=== PATIENT | male | born 1940 | race Caucasian/White ===

== ENCOUNTER 2017-11-19 10:52 | Day surgery (SDC) | payer OTHER ==
[2017-11-19] MEDS ORDERED: ACETAMINOPHEN 500 MG TAB PO ONE (11:19)
[2017-11-19] MEDS ORDERED: ceFAZolin 2 GM/SWFI 2 GM/20 ML SYR IVP ONE (11:19)
[2017-11-19] MEDS ORDERED: GABAPENTIN 300 MG CAP PO ONE (11:19)
[2017-11-19] MEDS ORDERED: LR 1,000 ML IV ONE (11:36)
[2017-11-19 11:46] VITALS: BP 177/83
[2017-11-19] MEDS ORDERED: EPINEPHrine 1 MG/ML INJ ONE (11:50)
[2017-11-19] MEDS ORDERED: THROMBIN (BOVINE) 5,000 UNIT VIAL TP ONE (11:50)
[2017-11-19] MEDS ORDERED: BUPIVACAINE 0.25% 30 ML SDV ONE (11:50)
[2017-11-19] MEDS ORDERED: BACITRACIN 50,000 UNITS/10 ML SYR IRR ONE (11:50)
[2017-11-19] MEDS ORDERED: IOPAMIDOL (ISOVUE-M 300) 15 ML VIAL ONE (11:51)
--- NOTE | 2017-11-19 12:35 | PDANEPAE ---
ANE History of Present Illness 77 yo male for kyphoplasty. ANE Past Medical History - Cardiovascular History Hx Hypertension: Yes Hx Arrhythmias: No Hx Chest Pain: No Hx Coronary Artery / Peripheral Vascular Disease: No Hx CHF / Valvular Disease: No Hx Palpitations: No Cardiovascular History Comment: chronic dry cough from JEANNINE-I - Pulmonary History Hx COPD: No Hx Asthma/Reactive Airway Disease: No Hx Recent Upper Respiratory Infection: No Hx Oxygen in Use at Home: Yes Hx Sleep Apnea: No Sleep Apnea Screening Result - Last Documented: Positive Pulmonary History Comment: USES C-PAP WITH 3 L. FOR CALLI. EXPERIENCED COLLAPSED LUNG WITH ONE OF HIS PREV SURGERIES - Neurologic History Hx Cerebrovascular Accident: No Hx Seizures: No Hx Dementia: No Neurologic History Comment: MIGRAINES, pt reports a blood clot in his R eye when he stopped taking his ASA. - Endocrine History Hx Diabetes: No Hypothyroid: Yes Hyperthyroid: No Obesity: no Endocrine History Comment: HYPOTHYROIDISM - Renal History Hx Renal Disorders: No - Liver History Hx Hepatic Disorders: No - Neurological & Psychiatric Hx Hx Neurological and Psychiatric Disorders: No - Cancer History Hx Cancer: No - Congenital Disorder History Hx Congenital Disorders: No - GI History Hx Gastrointestinal Disorders: Yes Gastrointestinal History Comment: CHRONIC DYSPHAGIA. GERD. HIATAL HERNIA. CONSTIPATION. BLOOD CLOT R EYE IN PAST. MACULAR PUCKER R EYE - Other Health History Other Health History: DENTURES UPPER AND LOWER. ARTHRITIS IN MOST JOINTS. MUSCLE ATROPHY R ARM AND SHOULDER. T12 UNSTABLE. BRUISES EASILY - Chronic Pain History Chronic Pain: Yes (T7-T8 PAIN) - Surgical History Prior Surgeries: LUMBAR FUSION 01/2016. CERVICAL ACDF 10/25/15. 2012 fusion of S1. 02/2014 removal of hardware. 2000 neck surgeries x 2. fusion top C123. lower jaw implant. L KNEE SURGERY. TONSILLECTOMY ANE Review of Systems Review of Systems: - Exercise capacity METS (RN): 4 METS - Systems Constitutional: Reports: no symptoms Cardiac: Reports: no symptoms Muscolosketal: Reports: back pain ANE Patient History - Allergies Allergies/Adverse Reactions: codeine Allergy (Verified 11/16/17 12:21) RED FACE,NECK,CHEST & PASSED OUT - Home Medications Home Medications: Levothyroxine [Synthroid 137 mcg (*)] 137 mcg PO DAILY 10/17/15 [Last Taken ] Lisinopril/Hydrochlorothiazide [Lisinopril-Hctz 10-12.5 mg Tab] 1 tab PO DAILY 10/17/15 [Last Taken 11/19/17] Almotriptan Malate [Axert] 12.5 mg PO ONCE PRN 01/11/16 [Last Taken 11/17/17] LORazepam [Ativan (*)] 0.5 mg PO DAILY PRN 01/11/16 [Last Taken 11/17/17] Ranitidine HCl 150 mg PO DAILY PRN 01/11/16 [Last Taken 11/17/17] Aspirin 81mg (*) 11/16/17 [Last Taken 11/17/17] Herbals/Supplements -Info Only 11/16/17 [Last Taken 11/17/17] Omeprazole 11/16/17 [Last Taken 11/17/17] Zyrtec 11/16/17 [Last Taken 11/17/17] - NPO status NPO Since - Liquids (Date): 11/18/17 NPO Since - Liquids (Time): 21:00 NPO Since - Solids (Date): 11/18/17 NPO Since - Solids (Time): 21:00 - Anes Hx Anes Hx: no prior problems - Smoking Hx Smoking Status: Former smoker Marijuana use: Yes - Alcohol Use Alcohol Use: Rarely - Family Anes Hx Family Anes Hx: neg - N/A Family Hx Anesthesia Complications: NEG ANE Labs/Vital Signs - Labs - BMP BUN: 27 Creatinine: 1.4 - Vital Signs Blood Pressure: 177/83 Heart Rate: 63 Respiratory Rate: 18 O2 Sat (%): 95 Height: 173.99 cm Weight: 83.461 kg ANE Physical Exam - Airway Neck exam: spinal fusion Mallampati Score: Class 2 Mouth exam: dentures - Pulmonary Pulmonary: clear to auscultation - Cardiovascular Cardiovascular: irregularly irregular (Will check 12 lead EKG) - ASA Status ASA Status: III ANE Anesthesia Plan Anesthesia Plan: general endotracheal anesthesia
--- NOTE | 2017-11-19 12:46 | CPEKG ---
Heart Rate: 144 RR Interval: 417 QRSD Interval: 84 QT Interval: 300 QTC Interval: 465 QRS Brewster: 42 T Wave Brewster: 235 EKG Severity - ABNORMAL ECG - EKG Impression: ATRIAL FIBRILLATION, V-RATE 111-167 EKG Impression: REPOLARIZATION ABNORMALITY, PROB RATE RELATED Electronically Signed By: Rinku Lam 20-Nov-2017 07:34:37
[2017-11-19] MEDS ORDERED: ASPIRIN 81 MG CHEWABLE TAB PO ONE (13:08)
--- NOTE | 2017-11-19 14:48 | GCON ---
[f rep st] CONSULTATION I was asked to visit a patient who was about to have back surgery today in the presurgical area. The patient was found to have atrial fibrillation with a rapid ventricular response. He has no chest pain. He feels his heart going a little bit fast, but has no other complaints. No findings to sugg est failure acute coronary syndrome. His surgery had been canceled, and they asked if we would just discuss atrial fibrillation with the patient. I visited with the patient and his . I have answered their questions. They have a primary care doctor at [place] that they will discuss a trial fibrillation with. I have given them written instructions to ask him about full anticoagulatio n with warfarin or abciximab-type medications. In the meantime, he is going to resume aspirin 81 mg a day. We discussed the stroke risks. I strongly recommended he get full anticoagulation which is t he way we would treat him, but we are not going to start that as he is not our patient and we do not know him. He will most likely see a survey compiler that his primary care doctor recommends up in [place] because of their proximity, but I have given him our name and phone number, and we are more than happy to se e him at any time in the future if he would like to have his care done by us. He is hemodynamically stable. I have discussed with them the presentation of stroke and made it very clear to his and he that should he develop any neurologic symptoms suggestive of a stroke at al l he needs to call 911 to get to the hospital to be evaluated. He is not symptomatic with this fast heart rate so he is going to take up rate control, etc., and rhy thm control with his own primary care doctor, and they will call him later today. All their questions have been answered. Thank you very much. /[id number]/MODL
== END 2017-11-19 13:37 | disposition home or self-care (01) ==
LOC: FSGY 10:52
PROVIDERS: ATTEND Neurological Surgery
DX: M54.9 Dorsalgia, unspecified (principal); Z53.09 Procedure and treatment not carried out because of other contraindication; I49.01 Ventricular fibrillation
CPT/HCPCS: J0171; J0690; Q9967

== ENCOUNTER 2018-01-14 11:44 | Observation (INO) | payer OTHER ==
[2018-01-14] MEDS ORDERED: LIDOCAINE 1% 2 ML INJ ONE (12:21)
[2018-01-14] MEDS ORDERED: ceFAZolin 2 GM/DEXTROSE 100 ML IV ONE (12:30)
[2018-01-14] MEDS ORDERED: LIDOCAINE 1% 2 ML INJ ID PRN (12:31)
[2018-01-14] MEDS ORDERED: LR 1,000 ML IV ONE (12:31)
[2018-01-14] MEDS ORDERED: CHLORHEXIDINE GLUC HIBICLENS 118 ML BTL TP ONE (13:08)
[2018-01-14] MEDS ORDERED: IOPAMIDOL (ISOVUE-M 300) 15 ML VIAL ONE (13:08)
[2018-01-14] MEDS ORDERED: EPINEPHrine 1 MG/ML INJ ONE (13:08)
[2018-01-14] MEDS ORDERED: THROMBIN (BOVINE) 5,000 UNIT VIAL TP ONE (13:08)
[2018-01-14] MEDS ORDERED: BUPIVACAINE 0.25% 30 ML SDV ONE (13:08)
--- NOTE | 2018-01-14 14:12 | PDANEPAE ---
ANE History of Present Illness Kyphoplasty ANE Past Medical History - Cardiovascular History Hx Hypertension: Yes Hx Arrhythmias: No Hx Chest Pain: No Hx Coronary Artery / Peripheral Vascular Disease: No Hx CHF / Valvular Disease: No Hx Palpitations: No Cardiovascular History Comment: chronic dry cough from JEANNINE-I - Pulmonary History Hx COPD: No Hx Asthma/Reactive Airway Disease: No Hx Recent Upper Respiratory Infection: No Hx Oxygen in Use at Home: Yes Hx Sleep Apnea: Yes Sleep Apnea Screening Result - Last Documented: Positive Pulmonary History Comment: USES C-PAP WITH 3 L. FOR CALLI INSTRUCTED TO BRING DOS. EXPERIENCED COLLAPSED LUNG WITH ONE OF HIS PREV SURGERIES - Neurologic History Hx Cerebrovascular Accident: No Hx Seizures: No Hx Dementia: No Neurologic History Comment: MIGRAINES, pt reports a blood clot in his R eye when he stopped taking his ASA. LT MACULAR BLOOD CLOT - Endocrine History Hx Diabetes: No Endocrine History Comment: HYPOTHYROIDISM - Renal History Hx Renal Disorders: No - Liver History Hx Hepatic Disorders: No - Neurological & Psychiatric Hx Hx Neurological and Psychiatric Disorders: No - Cancer History Hx Cancer: No - Congenital Disorder History Hx Congenital Disorders: No - GI History Hx Gastrointestinal Disorders: Yes Gastrointestinal History Comment: GERD. HIATAL HERNIA. CONSTIPATION - Other Health History Other Health History: DENTURES UPPER AND LOWER. ARTHRITIS IN MOST JOINTS. MUSCLE ATROPHY R ARM AND SHOULDER. BRUISES EASILY - Chronic Pain History Chronic Pain: Yes (SPINE) - Surgical History Prior Surgeries: TLIF 01/31/16. LUMBAR FUSION 01/2016. CERVICAL ACDF 10/25/15. 2012 fusion of S1. 02/2014 removal of hardware. 2001 neck surgeries x 2. fusion top C123. lower jaw implant. L KNEE SURGERY. TONSILLECTOMY ANE Review of Systems Review of systems is: negative Review of Systems: - Exercise capacity METS (RN): 4 METS ANE Patient History - Allergies Allergies/Adverse Reactions: codeine Allergy (Verified 11/16/17 12:21) RED FACE,NECK,CHEST & PASSED OUT - Home Medications Home medications: home medication list seen and reviewed Home Medications: Levothyroxine [Synthroid 137 mcg (*)] 137 mcg PO HS 10/17/15 [Last Taken ] Lisinopril/Hydrochlorothiazide [Lisinopril-Hctz 10-12.5 mg Tab] 1 tab PO DAILY 10/17/15 [Last Taken 01/13/18] Almotriptan Malate [Axert] 12.5 mg PO ONCE PRN 01/11/16 [Last Taken 01/14/18] LORazepam [Ativan (*)] 0.5 mg PO DAILY PRN 01/11/16 [Last Taken 12/25/17] Ranitidine HCl 150 mg PO BID PRN 01/11/16 [Last Taken 01/13/18] Herbals/Supplements -Info Only 11/16/17 [Last Taken 11/17/17] Omeprazole BID 11/16/17 [Last Taken 01/13/18] Eliquis DAILY 01/08/18 [Last Taken 01/09/18] Metoprolol Tartrate BID 01/08/18 [Last Taken 01/13/18] - NPO status NPO Since - Liquids (Date): 01/14/18 NPO Since - Liquids (Time): 11:30 NPO Since - Solids (Date): 01/13/18 NPO Since - Solids (Time): 21:00 - Smoking Hx Smoking Status: Former smoker - Family Anes Hx Family Hx Anesthesia Complications: NEG ANE Labs/Vital Signs - Vital Signs Vital Signs: reviewed preoperatively; see RN documention for details Blood Pressure: 156/75 Heart Rate: 57 Respiratory Rate: 20 O2 Sat (%): 96 Height: 177.8 cm Weight: 81.193 kg ANE Physical Exam - Airway Neck exam: decreased ROM, spinal fusion Mallampati Score: Class 2 Mouth exam: normal dental/mouth exam - Pulmonary Pulmonary: no respiratory distress - Cardiovascular Cardiovascular: irregularly irregular - ASA Status ASA Status: III ANE Anesthesia Plan Anesthesia Plan: general endotracheal anesthesia
[2018-01-14] MEDS ORDERED: DEXAMETHASONE 4 MG/ML VIAL ONE (14:16)
[2018-01-14] MEDS ORDERED: LIDOCAINE 2% 100 MG/5 ML SYR ONE (14:16)
[2018-01-14] MEDS ORDERED: ONDANSETRON 4 MG/2 ML VIAL ONE (14:16)
[2018-01-14] MEDS ORDERED: fentaNYL 100 MCG/2 ML INJ ONE (14:16)
[2018-01-14] MEDS ORDERED: PROPOFOL 200 MG/20 ML VIAL ONE ×2 (14:18→14:40)
[2018-01-14] MEDS ORDERED: HYDROCODONE/APAP 5/325 TAB PO PRN (15:24)
[2018-01-14] MEDS ORDERED: oxyCODONE IR 5 MG TAB PO PRN (15:24)
[2018-01-14] MEDS ORDERED: HYDROmorphONE/DILAUDID 1 MG/ML INJ IVP PRN (15:24)
[2018-01-14] MEDS ORDERED: PROMETHAZINE HCL 25 MG/ML INJ IVP PRN (15:24)
[2018-01-14] MEDS ORDERED: NALOXONE HCL 0.4 MG/ML INJ IVP PRN (15:24)
[2018-01-14] MEDS ORDERED: DEXAMETHASONE 4 MG/ML VIAL IVP PRN (15:24)
[2018-01-14] MEDS ORDERED: ONDANSETRON 4 MG/2 ML VIAL IVP PRN ×3 (15:24→17:41)
[2018-01-14] MEDS ORDERED: LABETALOL HCL 5 MG/ML 20 ML MDV IVP PRN (15:24)
[2018-01-14] MEDS ORDERED: MEPERIDINE 25 MG/0.5 ML AMP IVP PRN (15:24)
[2018-01-14] MEDS ORDERED: fentaNYL 100 MCG/2 ML INJ IVP PRN (15:24)
[2018-01-14] MEDS ORDERED: ENALAPRILAT DIHYDRATE 1.25 MG/ML VIAL IVP PRN (15:24)
[2018-01-14] MEDS ORDERED: ACETAMINOPHEN 500 MG TAB PO PRN (15:24)
--- NOTE | 2018-01-14 15:27 | POSTANESTH ---
Post Anesthetic Evaluation Cardiovascular Status: Similar to Pre-Op Cond Respiratory Status: Similar to Pre-op Cond. Level of Consciousness/Mental Status: Can Participate in Eval, Mildly Sleepy, Arousable Pain Control: Adequate, Prn Tx Ordered Nausea/Vomiting Control: Adequate, Prn Tx Ordered Complications Possibly Related to Anesthesia: None Noted
--- NOTE | 2018-01-14 15:50 | PDHPUP ---
History & Physical Update H&P update statement: This history and physical update is based on an assessment of the patient which was completed after admission or registration (within 24 hours), but prior to the surgery/procedure. H&P update: H&P reviewed & patient examined, no change in patient's condition since H&P completed
--- NOTE | 2018-01-14 16:15 | SOAPPROG ---
SAMARA Progress Note Assessment/Plan: Assessment: 77 yo M sp T7, T8 kyphoplasty Plan: stable dc home follow up in 2 weeks please call with neuro changes 01/14/18 16:13 Subjective: no back pain, no rib pain. Objective: Vital Signs Temp Pulse Resp BP Pulse Ox 36.8 C 57 L 20 156/75 H 96 01/14/18 12:36 01/14/18 14:13 01/14/18 14:13 01/14/18 14:13 01/14/18 14:13 somnolent PERRL, EOMI JORGE x4 + light touch ICD10 Worksheet Patient Problems: Problems Problem Status Onset Thoracic compression fracture Acute Cervical vertebral fusion Acute - ICD10 Problem Qualifiers (1) Thoracic compression fracture Qualifiers: Encounter type: subsequent encounter Fracture type: closed Fracture healing: with delayed healing Qualified Code(s): S22.000G - Wedge compression fracture of unspecified thoracic vertebra, subsequent encounter for fracture with delayed healing
[2018-01-14] MEDS ORDERED: ENALAPRILAT DIHYDRATE 1.25 MG/ML VIAL ONE (16:17)
--- NOTE | 2018-01-14 16:39 | GOP ---
[f rep st] OPERATIVE REPORT DATE OF OPERATION: 01/14/2018 SURGEON: Phi Bryant MD NEUROSURGEON: Phi Bryant MD MACHINE STRAP BUCKLER: Gilberto Bruce PA-C ANESTHESIA: General endotracheal. 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 Failed conservative care, POSTOPERATIVE DIAGNOSIS: T7 and T8 osteoporotic vertebral compression fractures with intractable ayanna n. Failed conservative care, PROCEDURE PERFORMED: Minimally invasive T7 and T8 kyphoplasty procedures with use of intraoperative fluoroscopy and computer volumetric stereotactic navigation. FINDINGS: ESTIMATED BLOOD LOSS: Trace. INDICATIONS: The patient is a 77-year-old man who underwent a prior multilevel thoracolumbar instrum entation and fusion who did extremely well, but then developed back pain at the upper aspect of his c onstruct and was found to have T7-T8 osteoporotic vertebral compression fractures. He was braced and underwent other conservative measures, but has ongoing intractable pain and presents now for kyphopl asty procedure. DESCRIPTION OF PROCEDURE: After informed consent was obtained, the patient was taken to the operatin g room and placed on the Alejandro table. The thoracic area was prepped and draped in a sterile fashio n. After fluoroscopic localization of the correct levels, the subcutaneous and intramuscular tissues were infiltrated with local anesthesia. A midline linear incision was then created 2 to 3 interspaces below the T7-8 levels. The incision wa s carried down the fascial layer, which was incised using monopolar electrocautery and carried in a s ubperiosteal plane along a spinous process. The [employer] neuronavigational frame was connected and ve rified and the O-arm neuronavigational system brought in and 3-D reconstructed images obtained and se nt to the [employer] station. Using computer volumetric stereotactic navigation in combination with real-time fluoroscopy, the T7 a nd T8 pedicles on the left side were cannulated and the needle that goes across the vertebral body wa s utilized to break up tissue. The vertebral bodies were then filled with bone cement under real cabrera e biplanar fluoroscopy without complications. Following this, the cannulas were removed. The wounds were copiously irrigated with antibiotic irrigation and closed in a layered fashion using interrupte d Vicryl sutures, followed by Steri-Strips on the skin. COMPLICATIONS: None. DISPOSITION: The patient is currently in the process of being repositioned for extubation. /[id number]/MODL
[2018-01-14] MEDS ORDERED: diphenhydrAMINE 25 MG CAP PO PRN (17:41)
[2018-01-14] MEDS ORDERED: METHOCARBAMOL 750 MG TAB PO PRN (17:41)
[2018-01-14] MEDS ORDERED: MAGNESIUM HYDROXIDE 30 ML UDCUP PO PRN (17:41)
[2018-01-14] MEDS ORDERED: ONDANSETRON DISINTEGRATING 4 MG TAB PO PRN (17:41)
[2018-01-14] MEDS ORDERED: LACTULOSE 20 GM/30 ML UDCUP PO PRN (17:41)
[2018-01-14] MEDS ORDERED: BISACODYL 10 MG SUPP PR PRN (17:41)
[2018-01-14] MEDS ORDERED: NS 1,000 ML IV SCH (17:45)
[2018-01-14] MEDS: FAMOTIDINE 20 MG TAB PO SCH (20:24)
[2018-01-14] MEDS: SENNOSIDES/DOCUSATE SODIUM TAB PO SCH (20:24)
[2018-01-14] MEDS: oxyCODONE IR 5 MG TAB PO PRN ×2 (20:24→22:28)
[2018-01-14] MEDS: POLYETHYLENE GLYCOL 3350 17 GM PKT PO SCH (22:28)
[2018-01-14] MEDS: ACETAMINOPHEN 500 MG TAB PO SCH (22:28)
[2018-01-14] MEDS: ceFAZolin 2 GM/DEXTROSE 100 ML IV SCH (22:28)
[2018-01-15 04:45] LABS: PLATELET COUNT 179 10^3/uL (150-400)
[2018-01-15] MEDS: ceFAZolin 2 GM/DEXTROSE 100 ML IV SCH (05:19)
[2018-01-15] MEDS: ACETAMINOPHEN 500 MG TAB PO SCH (05:19)
[2018-01-15] MEDS: oxyCODONE IR 5 MG TAB PO PRN (05:19)
[2018-01-15] MEDS: FAMOTIDINE 20 MG TAB PO SCH (05:19)
[2018-01-15 07:20] VITALS: BP 122/58
--- NOTE | 2018-01-15 07:45 | SOAPPROG ---
SOAP Progress Note Assessment/Plan: Assessment: POD #1 sp T7 and T8 kyphoplasty Back pain improved Denies numbess tingling or weakness Plan: PT/OT this AM DC home today 01/15/18 07:42 Subjective: Sitting up in bed. Back pain well controlled. Has some reflux which bothers him more than his back. Denies numbness, tingling or weakness. Objective: Vital Signs Temp Pulse Resp BP Pulse Ox 36.7 C 47 L 16 122/58 H 99 01/15/18 07:17 01/15/18 07:17 01/15/18 07:17 01/15/18 07:17 01/15/18 07:17 Laboratory Results 01/15/18 04:33 01/15/18 04:33 01/14/18 01/15/18 01/16/18 05:59 05:59 05:59 Intake Total 1660 Output Total 310 Balance 1350 Neuro: 5/5 bilateral LE, sens +LT A+Ox4 Dressing: CDI ICD10 Worksheet Patient Problems: Problems Problem Status Onset Thoracic compression fracture Acute Cervical vertebral fusion Acute
[2018-01-15] MEDS: POLYETHYLENE GLYCOL 3350 17 GM PKT PO SCH (09:19)
[2018-01-15] MEDS: SENNOSIDES/DOCUSATE SODIUM TAB PO SCH (09:19)
--- NOTE | 2018-01-15 10:09 | ASDISCHSUM ---
Discharge Information Plan Status:Home with No Needs Medically Cleared to Leave: Discharge Date:01/15/2018 10:01 AM CM D/C Disposition: ADT D/C Disposition:Home, Routine, Self-Care Projected Discharge Date:01/15/2018 10:01 AM Transportation at D/C: Discharge Delay Reason: Follow-Up Date:01/15/2018 10:01 AM Discharge Slot: Final Diagnosis: Placement Information Patient Contact Information Contact Name:BURTON Relationship: Address:[address] Work Phone: City:[facility] Phone: State/Zip Code:[place] [address] Email: Financial Information Financial Class:Medicare Advantage Plans Primary Plan Desc:[facility] ADVANTAGE PLANS Primary Plan Number:[id number] Secondary Plan Desc: Secondary Plan Number: Assessment Information LACE LACE Length of stay for Answers: 2 days current admission Acuity / Level of Answers: No Care: Did the patient have an inpatient admission? Comorbidities - select Answers: Opioid dependence all that apply / Chronic pain Other Notes: HTN; GERD # of Emergency department Answers: 0 visits in the last 6 months Score: 7 Date Signed: 01/15/2018 10:08 AM Electronically Signed By:NOEL Dior [facility] CM Progress Note CM Note CM Note Notes: Pt had kyphoplasty, OT/PT clear for home. No CM d/c needs identified. Date Signed: 01/15/2018 10:09 AM Electronically Signed By:NOEL Dior Intervention Information
== END 2018-01-15 10:01 | disposition home or self-care (01) ==
LOC: FSGY 11:44 → F3E 17:41 → F3N 17:50
PROVIDERS: ADMIT Neurological Surgery; ATTEND Neurological Surgery
DX: M80.08XA Age-related osteoporosis with current pathological fracture, vertebra(e), initial encounter for fracture (principal); M96.0 Pseudarthrosis after fusion or arthrodesis; I48.91 Unspecified atrial fibrillation; I12.9 Hypertensive chronic kidney disease with stage 1 through stage 4 chronic kidney disease, or unspecified chronic kidney disease; N18.9 Chronic kidney disease, unspecified; E03.9 Hypothyroidism, unspecified; G47.33 Obstructive sleep apnea (adult) (pediatric); Z87.891 Personal history of nicotine dependence; Z98.1 Arthrodesis status
CPT/HCPCS: 22513; 61783; 76001; 97161; 97165; C1713; G0378; G8978; G8979; G8980; G8987; G8988; J0171; J0690; J1100; J2001; J2405; J2704; J3010; Q9967